=== PATIENT | male | born 1970 | race Caucasian/White ===

== ENCOUNTER 2021-10-29 09:15 | Emergency (ER) | payer MEDICAID ==
[~2021-10-29] VITALS: Ht 160 cm; Wt 114.0 kg
[2021-10-29 09:25] VITALS: BP 154/79
[2021-10-29] MEDS ORDERED: ACETAMINOPHEN 325MG TABLET PO STA (10:31)
[2021-10-29 12:31] LABS: CLARITY URINE CLEAR (CLEAR); COLOR URINE YELLOW (YELLOW); KETONES URINE NEGATIVE (NEGATIVE); LEUKOCYTE ESTERASE URINE TRACE (NEGATIVE); NITRITE URINE NEGATIVE (NEGATIVE); OCCULT BLOOD URINE NEGATIVE (NEGATIVE); PH URINE 7.5 (4.5-8.0); PROTEIN URINE NEGATIVE (NEGATIVE); SPECIFIC GRAVITY URINE 1.007 (1.005-1.030); UROBILINOGEN URINE 0.2 E.U./dL (0.2-1.0)
[2021-10-29 12:37] LABS: BASOPHILS % 1.1 % (0.0-2.0); EOSINOPHILS % 4.4 % (0.0-5.0); HEMATOCRIT. 40.8 % (42.0-52.0); HEMOGLOBIN. 13.7 g/dL (14.0-18.0); LYMPHOCYTES % 12.7 % (20.0-50.0); MEAN CORPUSCULAR HEMOGLOBIN 28.9 pg (28.0-32.0); MEAN PLATELET VOLUME 7.6 fl (7.4-10.4); MONOCYTES % 13.6 % (2.0-8.0); NEUTROPHILS % 68.2 % (40.0-76.0); PLATELET 206 x1000/uL (130-400); RED BLOOD CELL COUNT 4.74 mill/uL (4.7-6.1); RED CELL DISTRIBUTION WIDTH 15.4 % (11.6-14.6)
[2021-10-29 12:45] LABS: CHLORIDE 106 mEq/L (98-107)
[2021-10-29] MEDS ORDERED: NAPR-681 PO (13:19)
[2021-10-29] MEDS ORDERED: DYZ PO (13:19)
[2021-10-29] MEDS ORDERED: CEPH500T PO (13:19)
[2021-10-29] MEDS ORDERED: SULF1TAB48 PO (13:19)
== END 2021-10-29 13:53 | disposition home or self-care (01) ==
LOC: ER 09:15
DX: L03.116 Cellulitis of left lower limb (principal); L03.115 Cellulitis of right lower limb; I10 Essential (primary) hypertension
CPT/HCPCS: 36415; 80053; 81003; 83880; 85025; 99283

== ENCOUNTER 2021-11-02 08:58 | Emergency (ER) | payer MEDICAID ==
[~2021-11-02] VITALS: Ht 165.1 cm; Wt 127.0 kg
[~2021-11-02 08:58] MED LIST: CEPH500T PO; DYZ PO; NAPR-681 PO; SULF1TAB48 PO
[2021-11-02 09:01] VITALS: BP 147/75
== END 2021-11-02 11:47 | disposition home or self-care (01) ==
LOC: ER 08:58
DX: L73.9 Follicular disorder, unspecified (principal)
CPT/HCPCS: 93970; 99284

== ENCOUNTER 2023-07-20 09:42 | Emergency (ER) | payer MEDICAID ==
[~2023-07-20] VITALS: Ht 167.6 cm; Wt 125.0 kg
[2023-07-20 09:49] VITALS: O2SAT 97
[2023-07-20 10:14] LABS: HEMOGLOBIN. 15.2 g/dL (14.0-18.0); MEAN CORPUSCULAR HEMOGLOBIN 31.6 pg (28.0-32.0); MEAN CORPUSCULAR HGB CONC 35.3 g/dL (31.0-37.0); MEAN CORPUSCULAR VOLUME 89.5 fL (80.0-94.0); MEAN PLATELET VOLUME 7.9 fl (7.4-10.4); PLATELET 164 x1000/uL (130-400); RED BLOOD CELL COUNT 4.81 mill/uL (4.7-6.1); RED CELL DISTRIBUTION WIDTH 15.8 % (11.6-14.6); WHITE BLOOD COUNT 6.6 x1000/uL (4.5-11.0)
[2023-07-20 10:20] LABS: DIFFERENTIAL COMMENT 1
[2023-07-20 10:49] LABS: ALANINE AMINOTRANSFERASE 49 IU/L (10-49); ALBUMIN 3.9 g/dL (3.2-4.8); ASPARTATE AMINOTRANSFERASE 31 IU/L (<34); BILIRUBIN TOTAL 0.6 mg/dL (0.1-1.0); CALCIUM 9.1 mg/dL (8.7-10.4); CARBON DIOXIDE 30 mEq/L (21-32); CHLORIDE 103 mEq/L (98-107); CREATININE 0.5 mg/dL (0.6-1.3); GLUCOSE 213 mg/dL (70-105); POTASSIUM 3.8 mEq/L (3.5-5.1); PROTEIN TOTAL 5.9 g/dL (6.0-8.3); SODIUM 138 mEq/L (136-145); UREA NITROGEN BLOOD 11 mg/dL (9-23)
[2023-07-20 10:51] LABS: PROTHROMBIN TIME 10.7 sec (9.6-11.0)
[2023-07-20 12:44] LABS: CLARITY URINE CLOUDY (CLEAR); COLOR URINE YELLOW (YELLOW); GLUCOSE URINE NEGATIVE (NEGATIVE); KETONES URINE NEGATIVE (NEGATIVE); LEUKOCYTE ESTERASE URINE 1+ (NEGATIVE); NITRITE URINE NEGATIVE (NEGATIVE); OCCULT BLOOD URINE NEGATIVE (NEGATIVE); PH URINE 8.5 (4.5-8.0); PROTEIN URINE NEGATIVE (NEGATIVE); SPECIFIC GRAVITY URINE 1.011 (1.005-1.030)
[2023-07-20 13:27] LABS: BACTERIA URINE 2+; RBC URINE NONE SEEN /hpf (0-2); SQUAMOUS EPITHELIAL CELL URINE NONE SEEN /lpf (RARE/1+); WBC URINE 0-2 /hpf (0-2); YEAST URINE NONE SEEN
[2023-07-20] MEDS ORDERED: FUROSEMIDE 40MG TABLET PO NR (13:45)
[2023-07-20 13:58] LABS: TROPONIN I HIGH SENSITIVITY 27 ng/L (3.0-53)
[2023-07-20] MEDS: FUROSEMIDE 40MG TABLET PO NR (14:22)
[2023-07-20] MEDS ORDERED: POTA-202 MT (15:06)
[2023-07-20] MEDS ORDERED: FURO-152 MT (15:06)
[2023-07-20 15:14] LABS: *AMPHETAMINES SCREEN URINE NEGATIVE (NEGATIVE); *BARBITURATES SCREEN URINE NEGATIVE (NEGATIVE); *BENZODIAZEPINES SCREEN URINE NEGATIVE (NEGATIVE); *COCAINE SCREEN URINE NEGATIVE (NEGATIVE); CANNABINOID URINE SCREEN NEGATIVE (NEGATIVE); ECSTASY MDMA SCREEN URINE NEGATIVE (NEGATIVE); METHADONE URINE SCREEN Neg (NEGATIVE); OPIATES URINE SCREEN NEGATIVE (NEGATIVE); PHENCYCLIDINE URINE SCREEN NEGATIVE (NEGATIVE)
[2023-07-20 15:40] VITALS: BP 145/90; PULSE 80; RESP 19; TEMP 98.2
[2023-07-20 16:04] LABS: PLATELET ESTIMATE NORMAL
== END 2023-07-20 15:51 | disposition home or self-care (01) ==
LOC: ER 09:42
DX: I87.2 Venous insufficiency (chronic) (peripheral) (principal); R60.0 Localized edema
CPT/HCPCS: 36415; 80053; 80305; 81003; 83880; 84484; 85025; 93005; 93970; 99284